=== PATIENT | female | born 1970 | race Caucasian/White ===

== ENCOUNTER 2023-08-13 06:27 | Day surgery (SDC) | payer OTHER ==
[~2023-08-13] VITALS: Ht 172.7 cm; Wt 93.4 kg
[2023-08-13] MEDS ORDERED: SIMETHICONE 40 MG/0.6 ML ML ONE (06:49)
[2023-08-13] MEDS ORDERED: MIDAZOLAM HCL 5 MG/5 ML VIAL ONE (06:49)
[2023-08-13] MEDS ORDERED: MEPERIDINE 100 MG INJ. 100 MG/ML VIAL ONE (06:49)
[2023-08-13 07:13] VITALS: O2SAT 99
[2023-08-13 16:34] VITALS: BP_SYST 118; PULSE 80; RESP 18
== END 2023-08-13 08:36 | disposition home or self-care (01) ==
LOC: SDS 06:27 → SMU 06:27 → SDS 08:36
PROVIDERS: ATTEND Internal Medicine Gastroenterology
DX: Z12.11 Encounter for screening for malignant neoplasm of colon (principal); K63.5 Polyp of colon; K64.9 Unspecified hemorrhoids; I10 Essential (primary) hypertension; J45.909 Unspecified asthma, uncomplicated; E11.9 Type 2 diabetes mellitus without complications; Z79.899 Other long term (current) drug therapy
CPT/HCPCS: 45385; 82962; 88305; 99152; G0378; J2250; J2175